=== PATIENT | female | born 1985 | race Caucasian/White ===

== ENCOUNTER → 2019-10-12 17:40 | Outpatient (BNVA) | payer BC, SELFPAY | PROVIDERS: Family Provider Family Medicine; PCP Family Medicine; Visit Provider Nurse Practitioner | DX: R09.89 Other specified symptoms and signs involving the circulatory and respiratory systems (principal); R52 Pain, unspecified | CPT/HCPCS: 87804 ==

== ENCOUNTER 2020-05-31 10:44 | Outpatient (CLI) | payer BC, SELFPAY ==
--- NOTE | 2020-05-31 11:00 | US_ITS ---
WS: [id number] LEFT DIGITAL MAMMOGRAPHY WITH CAD CLINICAL INFORMATION: BREAST LUMP COMPARISON: None. TECHNIQUE: 5 views of the left breast were obtained. FINDINGS: The left breast is composed of extremely dense tissue, which can limit the detection of small underly ing mass lesions. Palpable marker 6 clock position left breast. Underlying dense breast tissue. No de finite underlying mammographic nodules. Ultrasound is pending. No other abnormalities. ULTRASOUND BREAST LEFT TECHNIQUE: Ultrasound left breast focused area of concern. CLINICAL INFORMATION: BREAST LUMP COMPARISON: None. FINDINGS: Ultrasound left breast at the 6 clock position 2 cm from the nipple. There is a well-circumscribed ho mogeneous nodule measuring 1.1 x 0.4 x 1.0 cm this is nonspecific but most likely represents fibroade noma in a patient this age. This can be further evaluated ultrasound guided biopsy versus 6 month fol low-up. US/US breast LT limited* [id number] IMPRESSION: BI-RADS: 3-Probably Benign FOLLOW UP: 6 Month Follow-up Recommend 6 month follow-up left diagnostic mammography with ultrasound. Altern atively, ultrasound-guided biopsy could be obtained for definitive diagnosis
--- NOTE | 2020-05-31 11:41 | MM_ITS ---
WS: [id number] LEFT DIGITAL MAMMOGRAPHY WITH CAD CLINICAL INFORMATION: BREAST LUMP COMPARISON: None. TECHNIQUE: 5 views of the left breast were obtained. FINDINGS: The left breast is composed of extremely dense tissue, which can limit the detection of small underly ing mass lesions. Palpable marker 6 clock position left breast. Underlying dense breast tissue. No de finite underlying mammographic nodules. Ultrasound is pending. No other abnormalities. ULTRASOUND BREAST LEFT TECHNIQUE: Ultrasound left breast focused area of concern. CLINICAL INFORMATION: BREAST LUMP COMPARISON: None. FINDINGS: Ultrasound left breast at the 6 clock position 2 cm from the nipple. There is a well-circumscribed ho mogeneous nodule measuring 1.1 x 0.4 x 1.0 cm this is nonspecific but most likely represents fibroade noma in a patient this age. This can be further evaluated ultrasound guided biopsy versus 6 month fol low-up. MM/[place] [id number] IMPRESSION: BI-RADS: 3-Probably Benign FOLLOW UP: 6 Month Follow-up Recommend 6 month follow-up left diagnostic mammography with ultrasound. Altern atively, ultrasound-guided biopsy could be obtained for definitive diagnosis
== END 2020-05-31 10:45 | disposition home or self-care (01) ==
PROVIDERS: Family Provider Family Medicine; PCP Family Medicine; Visit Provider Obstetrics & Gynecology
DX: N63.25 Unspecified lump in the left breast, overlapping quadrants (principal)
CPT/HCPCS: 76642; 77065

== ENCOUNTER → 2020-06-29 13:04 | Outpatient (BNVA) | payer BC, SELFPAY | PROVIDERS: Family Provider Family Medicine; PCP Family Medicine; Visit Provider Obstetrics & Gynecology | DX: Z12.4 Encounter for screening for malignant neoplasm of cervix (principal) | CPT/HCPCS: 88175 ==

== ENCOUNTER → 2020-09-30 09:41 | Outpatient (BNVA) | payer BC, SELFPAY | PROVIDERS: Family Provider Family Medicine; PCP Nurse Practitioner Family; Visit Provider Obstetrics & Gynecology | DX: Z32.01 Encounter for pregnancy test, result positive (principal) | CPT/HCPCS: 81025 ==

== ENCOUNTER → 2020-11-09 11:50 | Outpatient (BNVA) | payer BC, SELFPAY | PROVIDERS: Family Provider Family Medicine; PCP Nurse Practitioner Family; Visit Provider Obstetrics & Gynecology | DX: O21.9 Vomiting of pregnancy, unspecified (principal); N60.12 Diffuse cystic mastopathy of left breast | CPT/HCPCS: 80307; 84315; 85027; 86592; 86762; 86803; 86850; 86900; 87086; 87340 ==

== ENCOUNTER → 2020-11-22 14:33 | Outpatient (BNVA) | payer BC, SELFPAY | PROVIDERS: Family Provider Family Medicine; PCP Nurse Practitioner Family; Visit Provider Obstetrics & Gynecology | DX: Z12.4 Encounter for screening for malignant neoplasm of cervix (principal); O21.9 Vomiting of pregnancy, unspecified; O99.891 Other specified diseases and conditions complicating pregnancy; Z28.3 Underimmunization status; B02.9 Zoster without complications; N60.12 Diffuse cystic mastopathy of left breast; F41.9 Anxiety disorder, unspecified; O99.340 Other mental disorders complicating pregnancy, unspecified trimester | CPT/HCPCS: 84315; 87491; 87591; 88175 ==

== ENCOUNTER 2020-12-20 07:39 | Outpatient (CLI) | payer BC, SELFPAY ==
--- NOTE | 2020-12-20 08:00 | US_ITS ---
WS: [id number] ULTRASOUND LEFT BREAST HISTORY: N60.12 - Diffuse cystic mastopathy of left breast COMPARISON: 05/31/2020 TECHNIQUE: 2-D and Doppler. The hypoechoic area in the LEFT breast at 6:00, 2 cm from nipple is again identified measuring 1.5 x 0.6 x 1.1 cm. This is probably focal fibroglandular breast tissue. There are no suspicious findings o r shadowing. US/US breast LT limited* [id number] IMPRESSION: BI-RADS: 2-Benign FOLLOW-UP: See Report No additional imaging is necessary of the LEFT breast abnormality seen by ultra sound unless there is a clinical change.
== END 2020-12-20 07:40 | disposition home or self-care (01) ==
PROVIDERS: PCP Nurse Practitioner Family; Visit Provider Obstetrics & Gynecology
DX: N60.12 Diffuse cystic mastopathy of left breast (principal)
CPT/HCPCS: 76642

== ENCOUNTER → 2020-12-21 15:49 | Outpatient (BNVA) | payer BC, SELFPAY | PROVIDERS: PCP Nurse Practitioner Family; Visit Provider Nurse Practitioner Women's Health | DX: O99.340 Other mental disorders complicating pregnancy, unspecified trimester (principal); O21.9 Vomiting of pregnancy, unspecified; N89.8 Other specified noninflammatory disorders of vagina; F41.9 Anxiety disorder, unspecified; N60.12 Diffuse cystic mastopathy of left breast; O99.891 Other specified diseases and conditions complicating pregnancy; Z28.3 Underimmunization status; B02.9 Zoster without complications; O23.599 Infection of other part of genital tract in pregnancy, unspecified trimester; B96.89 Other specified bacterial agents as the cause of diseases classified elsewhere | CPT/HCPCS: 82105; 84315 ==

== ENCOUNTER → 2021-02-22 15:10 | Outpatient (BNVA) | payer BC, SELFPAY | PROVIDERS: PCP Nurse Practitioner Family; Visit Provider Nurse Practitioner Women's Health | DX: Z34.90 Encounter for supervision of normal pregnancy, unspecified, unspecified trimester (principal); F41.9 Anxiety disorder, unspecified; R00.2 Palpitations; Z28.3 Underimmunization status | CPT/HCPCS: 84315; 84443; 85025 ==

== ENCOUNTER 2021-03-02 14:49 | Emergency (ER) | payer BC, SELFPAY ==
[2021-03-02 15:38] VITALS: BP 118/80; PULSE 97; RESP 18; TEMP 36.8; O2SAT 98; BMI 29.5
--- NOTE | 2021-03-02 16:54 | ECG_ITS ---
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 Measurements Intervals [place] Rate: 91 P: 60 [place]: 138 QRS: 46 QRSD: 74 T: 35 QT: 342 QTc: 422 Interpretive Statements SINUS RHYTHM WITH SINUS ARRHYTHMIA No previous ECG available for comparison Electronically Signed On 03-02-2021 22:54:51 CDT by Jacinta Hamlin M.D. [id number]
--- NOTE | 2021-03-02 17:14 | W.ED.CHESTPA ---
HPI - Chest Pain General: Chief Complaint: Chest Pain Stated Complaint: Chest pain Time Seen by Provider: 03/02/21 17:02 Source: patient Mode of arrival: ambulatory Limitations: no limitations History of Present Illness: HPI narrative: Patient is a 35-year-old female 27 weeks here for an episode of chest pain and palpitations that occurred approximately 3 hours ago. She states she was headed home from grocery shopping. She reports pain in the left side of her chest with radiation down her left arm and into her left neck. She felt like her heart was racing. She states she felt short of breath and had tingling to her bilateral hands and also felt like she was getting tunnel vision . Patient tells me she has had previous episodes like this during her but never had the numbness/tingling to her hands or radiation to the pain. She has spoken to her OB team Marjorie Judd/Dr. Coleman about the previous episodes and they have performed thyroid labs and CBC. Was told she was slightly anemic but that thyroid labs were normal. She states she was told they may order EKG and echo to evaluate further. She states in between episodes she feels completely normal. She does have a history of anxiety in but states this doesn't feel similar. MD complaint: chest pain Onset (ago): hour(s) Timing of current episode: episodic Prior episodes: Yes Pain location: left chest Pain radiation: left arm Quality: tightness and heaviness Relieving factors: nothing Exacerbating factors: nothing Associated symptoms: Reports dyspnea (during episode only) and palpitations; Deny abdominal pain, fever(s), nausea, syncope or vomiting Risk Factors: Coronary artery disease risk factors: none Thoracic aortic dissection risk factors: Pulmonary embolism risk factors: Related Data: On Oral Contraceptives: No Review of Systems Const: Denies: fever(s), chills, body aches, change in appetite, change in weight, fatigue or malaise Eyes: Reports: other (during episode she reports tunnel vision ); Denies: blurry vision, photophobia, floaters or seeing flashes ENMT: Denies: throat pain, odynophagia, nasal discharge or nasal congestion Card: Reports: chest pain, palpitations and pre-syncope; Denies: irregular heart rhythm, edema, swelling of feet/ankles, syncope, dyspnea on exertion, orthopnea, leg pain with exertion or acrocyanosis Resp: Reports: dyspnea (during episode only); Denies: productive cough, non-productive cough, wheezing, change in phlegm color, hemoptysis or chest congestion GI: Denies: abdominal pain, nausea, vomiting or diarrhea : Denies: flank pain, dysuria, hematuria or pelvic pain Musc: Denies: neck pain, back pain, extremity pain or joint pain Skin/Breast: Denies: rash Neuro: Denies: headache(s), numbness in extremities, weakness in extremities, sensory changes, lack of coordination, difficulty walking, frequent falls or dizziness PFSH ED PFSH: Medical History No pertinent past medical history Denies diabetes, asthma, hypertension, seizures, DVT/PE PCP: CULLEN Moreno Surgical History History of surgery on arm (~1996) reset R arm S/P cholecystectomy laparoscopic cholecystectomy on 06/08/[address] Choudhary at [facility] [place]. S/P tonsillectomy 2000 S/P wisdom tooth extraction Family History Sister Heart disease Father Heart disease Hyperlipidemia Grandmother Heart disease paternal--she reports they all have tachycardia-AV maurice re-entrant tachycardia Family/Other Thyroid condition maternal aunt Denies family history of Colon cancer Ovarian cancer Diabetes Breast cancer Hypertension Uterine cancer Stroke Physical Exam Const: COMMON NORMALS: no acute distress, average body habitus, patient oriented x3, no limitations, healthy appearing, alert and well nourished HENMT: COMMON NORMALS: normocephalic and atraumatic HEAD & SCALP: normocephalic and atraumatic Chest: COMMONS NORMALS: normal inspection of the chest and normal palpation of entire chest wall Resp: COMMON NORMALS: normal respiratory effort and clear to auscultation bilaterally AUSCULTATION: clear to auscultation bilaterally Cardio: COMMON NORMALS: regular rate and regular rhythm RATE: regular rate RHYTHM: regular rhythm GI: INSPECTION: Yes gravid abdomen Extremity: COMMON NORMALS: no calf tenderness and no pedal edema Neuro: COMMON NORMALS: patient oriented x3 SENSORIUM/ORIENTATION: Yes alert Skin: COMMON NORMALS: no rashes or lesions noted GENERAL SKIN EXAM: no rashes or lesions noted Course Vital Signs: Vital signs: Vital Signs Temperature 98.2 F 03/02/21 15:38 Pulse Rate 79 03/02/21 18:52 Respiratory Rate 18 03/02/21 18:52 Blood Pressure 97/69 03/02/21 18:52 Pulse Oximetry 98 03/02/21 18:52 MDM - Chest Pain MDM Narrative: Medical decision making narrative: Patient clinically appears well. Her vital signs are stable. Lab work showing mild anemia with a hemoglobin of 10.4. Remainder of labs including a troponin and BNP are unremarkable. Patient declined CXR secondary to status. EKG showing sinus rhythm with sinus arrhythmia. Patient requesting follow-up with cardiology for further evaluation. Information placed with case management. Return to ED precautions given. Lab Data: Labs: Lab Results 03/02/21 03/02/21 03/02/21 Range/Units 17:30 17:30 17:30 WBC 11.7 H (4.0-10.0) 10^3/ uL RBC 3.56 L (4.1-5.3) 10^6/u L Hgb 10.4 L (11.5-15.3) g/dL Hct 31.9 L (37.0-47.0) % MCV 89.6 (81-99) fL MCH 29.2 (28.0-34.0) pg MCHC 32.6 (30.0-36.0) g/dL RDW 12.8 (12.1-15.1) % Plt Count 291 (130-400) 10^3/c mm MPV 10.3 (7.4-10.4) fL Neut % (Auto) 77.5 % Lymph % (Auto) 15.3 % Mcdonough % (Auto) 5.7 % Eos % (Auto) 0.7 % Baso % (Auto) 0.2 % Neut # (Auto) 9.08 H (1.8-7.7) 10^3/u L Lymph # (Auto) 1.8 (0.8-4.8) 10^3/u L Mcdonough # (Auto) 0.7 (0.2-0.9) 10^3/u L Eos # (Auto) 0.1 (0.0-0.8) 10^3/u L Baso # (Auto) 0.0 (0.0-0.1) 10^3/u L Nucleated RBC % (a uto) 0 % Nucleated RBCs # 0.0 /100WBC Sodium 138 (136-145) mmol/L Potassium 3.8 (3.5-5.1) mmol/L Chloride 103 (98-107) mmol/L Carbon Dioxide 24 (22-29) mmol/L Anion Gap 14.8 (5-19) BUN 6 (6-20) mg/dL Creatinine 0.4 L (0.5-0.9) mg/dL GFR Calculation 182.7 H (90-130) mL/min Glucose 74 (65-115) mg/dL Calculated Osmolal ity 282 L (285-295) mOsm/k g Calcium 8.5 (8.5-10.5) mg/dL Total Bilirubin 0.3 (0.15-1.2) mg/dL AST 17 (0-32) U/L ALT 13 (0-33) U/L Alkaline Phosphata se 82 (35-105) IU/L Troponin T Baselin e 6 (0-10) ng/L NT-Pro-B Natriuret Pep 70 (0-125) pg/mL Total Protein 5.9 L (6.6-8.7) g/dL Albumin 3.5 (3.5-5.2) g/dL Globulin 2.4 (1.3-4.6) g/dL EKG Data^: EKG 1: EKG interpretation date: 03/02/21 EKG interpretation time: 17:40 Interpretation: Sinus rhythm with sinus arrhythmia Rate [address] elevation or depression changes noted Discharge Plan Discharge Patient Disposition: Home Clinical Impression: Chest pain during Condition: Stable Prescriptions: No Action Probiotic 5 billion cell capsule, sprinkle 1 cap PO BEDTIME RF: 0 Gummies 400 mcg-35 mg- 25 mg-5 mg tablet,chewable 1 tab PO BEDTIME RF: 0 buspirone 7.5 mg tablet 7.5 mg PO BID Qty: 60 RF: 2 ferrous sulfate [Cecily-Time] 325 mg (65 mg iron) tablet 325 mg PO BEDTIME RF: 0 Discharge Orders: Discharge ED (Routine); Ordered 03/02/21 Ordered By: Lorenza Cervantes Referrals: Brittany Beckett, JOSE LUIS [Primary Care Provider] - Coding Level of Care Code ED Athletic Agent for Chg Fwd Exam Comprehensive
[2021-03-02 17:16] VITALS: BP 118/72; PULSE 82; RESP 18; O2SAT 98
[2021-03-02 17:47] LABS: Basophils % 0.2 %; Eosinophils # 0.1 10^3/uL (0.0-0.8); Eosinophils % 0.7 %; Hematocrit 31.9 % (37.0-47.0); Hemoglobin 10.4 g/dL (11.5-15.3); Lymphocytes # 1.8 10^3/uL (0.8-4.8); Lymphocytes % 15.3 %; Mean Corpuscular HGB Conc 32.6 g/dL (30.0-36.0); Mean Corpuscular Hemoglobin 29.2 pg (28.0-34.0); Mean Corpuscular Volume 89.6 fL (81-99); Mean Platelet Volume 10.3 fL (7.4-10.4); Monocytes # 0.7 10^3/uL (0.2-0.9); Monocytes % 5.7 %; Neutrophils # 9.08 10^3/uL (1.8-7.7); Neutrophils % 77.5 %; Nucleated Red Blood Cells % 0 %; Platelet Count 291 10^3/cmm (130-400); Red Blood Count 3.56 10^6/uL (4.1-5.3); Red Cell Distribution Width 12.8 % (12.1-15.1); White Blood Count 11.7 10^3/uL (4.0-10.0)
[2021-03-02 18:29] LABS: Troponin(5th) Baseline 6 ng/L (0-10)
[2021-03-02 18:38] LABS: Alanine Aminotransferase 13 U/L (0-33); Albumin Level 3.5 g/dL (3.5-5.2); Alkaline Phosphatase 82 IU/L (35-105); Anion Gap 14.8 (5-19); Aspartate Amino Transferase 17 U/L (0-32); Blood Urea Nitrogen 6 mg/dL (6-20); Calcium 8.5 mg/dL (8.5-10.5); Carbon Dioxide 24 mmol/L (22-29); Chloride 103 mmol/L (98-107); Globulin 2.4 g/dL (1.3-4.6); Glomerular Filtration Rate 182.7 mL/min (90-130); Glucose 74 mg/dL (65-115); NT Pro B Type Natriuretic Pept 70 pg/mL (0-125); Osmolality Calculated 282 mOsm/kg (285-295); Potassium 3.8 mmol/L (3.5-5.1); Sodium 138 mmol/L (136-145); Total Bilirubin 0.3 mg/dL (0.15-1.2); Total Protein 5.9 g/dL (6.6-8.7)
[2021-03-02 18:52] VITALS: BP 97/69; PULSE 79; RESP 18; O2SAT 98
--- NOTE | 2021-03-02 18:54 | ECG_ITS ---
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 Measurements Intervals [place] Rate: 80 P: 66 VA: 137 QRS: 90 QRSD: 86 T: 50 QT: 359 QTc: 415 Interpretive Statements SINUS RHYTHM Compared to ECG 03/02/2021 17:40:33 Sinus arrhythmia no longer present Electronically Signed On 03-02-2021 23:04:38 CDT by Jacinta Hamlin M.D. [email or web address] beachwood medical centerSunnyloft/store/[id number]
[2021-03-02 19:07] LABS: Add Urine Microscopic? NO; Charge for UA Resulting for Rev
[2021-03-02 19:09] LABS: Bilirubin Urine Neg (Negative); Blood Urine Neg (Negative); Glucose Urine UA Norm (Normal); Ketones Urine 1+ (Negative); Leukocyte Esterase Urine Negative (Negative); Nitrate Urine Negative (Negative); Protein Urine Neg (Negative); Specific Gravity, Urine 1.005 (1.005-1.030); Urine Appearance Clear (CLEAR); Urine Color Yellow (Yellow); Urobilinogen Urine Norm (Negative); pH Urine 7 (5-7)
[2021-03-02 19:12] VITALS: BP 101/71; PULSE 80; RESP 18; O2SAT 98
--- NOTE | 2021-03-03 13:51 | DCPLANNER ---
consulting solution manager had message to schedule a follow up appointment for patient with [facility] for chest pain. consulting solution manager called [facility], spoke with Delaney, gave clinic patients information. A follow up appointment was scheduled for Monday, March 15, 2021 at 9:[address] Lea. consulting solution manager called patient and gave patient the appointment information, she stated that she would attend appointment.
--- NOTE | 2021-03-24 08:49 | DCPLANNER ---
Patient did attend follow up appointment with [facility].
== END 2021-03-02 19:10 | disposition home or self-care (01) ==
PROVIDERS: Family Medicine; Emergency Provider Physician Assistant; PCP Nurse Practitioner Family
DX: O26.892 Other specified pregnancy related conditions, second trimester (principal); Z3A.27 27 weeks gestation of pregnancy
CPT/HCPCS: 80053; 81003; 83880; 84484; 85025; 93005; 99284

== ENCOUNTER → 2021-03-14 13:35 | Outpatient (BNVA) | payer BC, SELFPAY | PROVIDERS: PCP Nurse Practitioner Family; Visit Provider Obstetrics & Gynecology | DX: O99.891 Other specified diseases and conditions complicating pregnancy (principal); R00.2 Palpitations; Z28.3 Underimmunization status; O99.340 Other mental disorders complicating pregnancy, unspecified trimester; F41.9 Anxiety disorder, unspecified; O99.013 Anemia complicating pregnancy, third trimester; Z3A.00 Weeks of gestation of pregnancy not specified | CPT/HCPCS: 82950; 84315; 85025 ==

== ENCOUNTER → 2021-05-13 14:31 | Outpatient (BNVA) | payer BC, SELFPAY | PROVIDERS: PCP Nurse Practitioner Family; Visit Provider Nurse Practitioner Women's Health | DX: Z30.2 Encounter for sterilization; O99.013 Anemia complicating pregnancy, third trimester; R00.2 Palpitations; O99.891 Other specified diseases and conditions complicating pregnancy; Z28.3 Underimmunization status; O99.340 Other mental disorders complicating pregnancy, unspecified trimester; F41.9 Anxiety disorder, unspecified | CPT/HCPCS: 84315; 85025; 87081 ==

== ENCOUNTER → 2021-05-26 10:13 | Outpatient (BNVA) | payer BC, SELFPAY | PROVIDERS: PCP Nurse Practitioner Family; Visit Provider Obstetrics & Gynecology | DX: Z34.80 Encounter for supervision of other normal pregnancy, unspecified trimester (principal); Z20.822 Contact with and (suspected) exposure to COVID-19 | CPT/HCPCS: 87635 ==

== ENCOUNTER 2021-05-30 16:05 | Inpatient (IN) | payer BC, SELFPAY ==
[2021-05-30] VITALS (9 sets, daily range): BP systolic 117–150; BP diastolic 74–89; PULSE 77–90; BMI 32.9
[2021-05-30 17:44] LABS: Basophils % 0.2 %; Eosinophils # 0.1 10^3/uL (0.0-0.8); Eosinophils % 0.4 %; Hematocrit 32.2 % (37.0-47.0); Hemoglobin 10.4 g/dL (11.5-15.3); Lymphocytes # 2.3 10^3/uL (0.8-4.8); Mean Corpuscular HGB Conc 32.3 g/dL (30.0-36.0); Mean Corpuscular Volume 86.6 fl (81-99); Mean Platelet Volume 11.1 fL (7.4-10.4); Monocytes # 0.8 10^3/uL (0.2-0.9); Monocytes % 7.5 %; Neutrophils # 8.03 10^3/uL (1.8-7.7); Neutrophils % 71.2 %; Nucleated Red Blood Cells % 0 %; Platelet Count 330 10^3/cmm (130-400); Red Blood Count 3.72 10^6/uL (4.1-5.3); Red Cell Distribution Width 15.6 % (12.1-15.1); White Blood Count 11.3 10^3/uL (4.0-10.0)
[2021-05-30] MEDS: miSOPROStol 100 mcg tablet 25 MCG VAGINAL (19:13)
[2021-05-30] MEDS: dextrose 5%-lactated ringers 1,000 ML 125 ML IV (19:31)
[2021-05-31] VITALS (30 sets, daily range): BP systolic 111–148; BP diastolic 61–97; PULSE 74–102; RESP 17–19; TEMP 36.2–37.2; O2SAT 98
--- NOTE | 2021-05-31 00:19 | PC.NURSE ---
Patient requesting fentanyl for pain once she goes back to her room after she is done ambulating. Back on monitor at 0011. Educated patient that she would have to be on monitor for 20 minutes for an NST and then RN would call Dr. Coleman for 25 mcg dose of fentanyl to ensure FHT's appropriate before administration.
[2021-05-31] MEDS: fentaNYL 50 mcg/mL INJ 2mL IVP ×3 (00:50→04:06)
--- NOTE | 2021-05-31 04:45 | PM.OPHPUD ---
Labor & Delivery H&P Update Date of Procedure: May 31, 2021 Date H&P Performed: 05/25/21 H&P update information: I have reviewed H&P completed within last 30 days, I have examined patient prior to procedure, Changes to prior documentation as noted here and H&P is in [facility] EMR on date indicated Changes to previous documentation: Patient is an active labor and is 5 cm, 70% and -2 station Admission Diagnosis:
[2021-05-31] MEDS: ondansetron 2 mg/ML SDV 2 mL 4 MG IVP ×2 (05:56→08:55)
[2021-05-31] MEDS: oxytocin 30 UNIT/500 ML BAG IV (08:20)
[2021-05-31] MEDS: dextrose 5%-lactated ringers 1,000 ML 125 ML IV (08:41)
[2021-05-31] MEDS: lidocaine 2% INJ 20 mL INJECTION (09:13)
[2021-05-31] MEDS: acetaminophen 325 mg Tablet 650 MG PO (10:19)
[2021-05-31] MEDS: benzocaine-menthol 78 gm Canister 1 SPRAY TOPICAL (10:20)
[2021-05-31] MEDS: lanolin oint 7 gm 1 APPLIC TOPICAL (10:20)
--- NOTE | 2021-05-31 10:29 | P.PCNOB_ITS ---
Delivery Note: Date of delivery: May 31, 2021 - PRE-DELIVERY DIAGNOSIS: 35-year-old 5 para 3-0-1-3 at 39 weeks and 1 day gestation GBS negative Anemia on iron Rubella nonimmune Anxiety controlled with BuSpar POST-DELIVERY DIAGNOSIS: Vaginal delivery on 05/31/2021 PROCEDURE: Vaginal delivery on 05/31/2021 ANESTHESIA: Local anesthesia DELIVERING PHYSICIAN: Giovany Coleman FACOG PRE-DELIVERY COURSE: Ms. Swanson is 35-year-old 5 para 3-0-1-3 at 39 weeks and 0 days who presented to labor and delivery at 4:30 PM on 05/30/2021 with reports of contractions. She had been having contractions every 5 to 7 minutes consistently since about 5 AM that morning. She was scheduled for an induction at 7 PM however given the contractions came in for evaluation.Her cervix was 1 cm, 70% and -2 station and she was observed for 2 hours and she madeNo cervical change although she did have contractions every 10 minutes. tracing was category 1 and vital signs were stable. Since she made no cervical change and contractions spaced out decision was made to proceed with the scheduled induction and Cytotec was placed vaginally at 7 PM. She did well with this and 4 hours after placement of Cytotec her cervix was 2 cm 80% and -2 station. She was nhan pretty regularly every 2 to 5 minutes and decision was made to just observe her to see if she was making cervical change. 2 hours later she was 3 cm and at 4 AM she was 4 cm, 80% and -2 station. Artificial rupture of membranes was performed at 4:39 AM with clear fluid at which point she was 5 cm 70% and -1 station with the head well applied. Clear fluid was noted. After this she made steady cervical change and was 9 cm at 6 AM however made no further cervical change and contractions spaced out to every 4 to 5 minutes. Pitocin was started at 8:15 AM titrated to a maximum of 2 mIU and with this she started a regular contractions and was fully dilated at 8:47 AM and +2 station ready to push. DELIVERY NOTE: She was set up in lithotomy position and was pushing effectively. She was noted to be +3 station and continued pushing well. The head delivered in TYLER position, tight nuchal cord x1 was present. And it was unable to be reduced. The posterior hand and shoulder delivered first through the cord after which the cord was reduced and then the shoulders and rest of the body followed with her next push. The baby's mouth and nose were suctioned and the baby was placed on the mother's belly. Once cord pulsations stopped the cord was clamped and cut. The placenta delivered spontaneously intact with membranes and was discarded. The fundus was noted to be firm and well contracted. The vagina and cervix were inspected and no cervical or sulcal lacerations were noted. A first-degree perineal laceration was noted which was numbed up with 2% lidocaine and repaired with 3-0 Vicryl on an SH in a continuous interlocking fashion. Good hemostasis and reapproximation was obtained. Baby boyRio born at 8:57 AM on 05/31/2021 with 8/9, weighing 6 pounds 12 ounces, 3017 g, 20-1/2 inches long. Placenta was delivered spontaneously intact with membranes at 9:03 AM. Cotyledons were intact , centrally inserted umbilical cord with 3 vessels noted. Estimated blood loss 250 mL. Complications-none, both baby and mother were left to recover in a stable condition. This documentation was created by [employer] pinsetter mechanic automatic software (known for inherent pinsetter mechanic automatic error). Every effort was made to assure accuracy of marley scription. Any obvious errors or omissions should be clarified with the author of the document. Coding Level of Care Code Acute Debarker Operator for g Fwd History History History 5 Term 4 Miscarriages/Ectopic 1 0 Living Children 4 Other History: G5, P4-0-1-4 X 4 SAB X 1 1--->2009, baby boy Lizandro) weighing 7 pounds, full term vaginal delivery, and course were uncomplicated, Delivered by Dr. Watkins at [facility] in [place], [place]. 2--->10/19/14, baby girl (Luci) 6lb 11 oz, full [place] [facility] [place] Immediate course was complicated by hemorrhage requiring uterotonic agents-hemoglobin was 9 on discharge. She also had an epidural headache which required 2 blood patches. 3--> 10/2017, SAB at 4 wks gestation, no d&c needed. 4--> 09/11/18, baby girl (Maki) 6lb 9 oz, full term vaginal delivery [place] Dud[place] [facility] [place] No complications. 5--> 05/31/2021, baby boy(Rio) weighing 6 pounds 12 ounces, full- term vaginal delivery [place] Dr. Coleman [place] [facility] [place] 12 are induction, first-degree perineal tear. No complications.
--- NOTE | 2021-05-31 12:23 | PC.NURSE ---
PT RESTING WITH EYES CLOSED, DID NOT WAKE HER.
[2021-05-31] MEDS: ibuprofen 800 mg tablet PO ×2 (14:24→21:35)
[2021-05-31] MEDS: HYDROcodone-acetaminophen 5-325 mg Tablet PO (18:19)
[2021-05-31] MEDS: docusate sodium 100 mg Capsule PO (18:19)
[2021-05-31 21:55] LABS: Hematocrit 30.4 % (37.0-47.0); Hemoglobin 9.7 g/dL (11.5-15.3); Mean Corpuscular HGB Conc 31.9 g/dL (30.0-36.0); Mean Corpuscular Hemoglobin 28.1 pg (28.0-34.0); Mean Corpuscular Volume 88.1 fl (81-99); Mean Platelet Volume 10.7 fL (7.4-10.4); Platelet Count 304 10^3/cmm (130-400); Red Blood Count 3.45 10^6/uL (4.1-5.3); Red Cell Distribution Width 15.6 % (12.1-15.1); White Blood Count 17.6 10^3/uL (4.0-10.0)
[2021-06-01] MEDS: HYDROcodone-acetaminophen 5-325 mg Tablet PO ×2 (01:21→07:00)
[2021-06-01 03:15] VITALS: BP 131/74; PULSE 71; RESP 14; TEMP 36.7; O2SAT 98
--- NOTE | 2021-06-01 05:57 | PM.OBGYDC ---
Discharge Providers WHITE LEAD GRINDER Date of Admission: 05/30/21 16:05 Date of Discharge: 06/01/21 Attending Provider at Admission: Giovany Donaldson MD Attending Provider at Discharge: Giovany Donaldson MD Primary Care Provider: Brittany Beckett NP PRE-DELIVERY DIAGNOSIS: 35-year-old 5 para 3-0-1-3 at 39 weeks and 1 day gestation GBS negative Anemia on iron Rubella nonimmune Anxiety controlled with BuSpar POST-DELIVERY DIAGNOSIS: Vaginal delivery on 05/31/2021 PROCEDURE: Vaginal delivery on 05/31/2021 ANESTHESIA: Local anesthesia DELIVERING PHYSICIAN: Giovany Coleman FACOG PRE-DELIVERY COURSE: Ms. Swanson is 35-year-old 5 para 3-0-1-3 at 39 weeks and 0 days who presented to labor and delivery at 4:30 PM on 05/30/2021 with reports of contractions. She had been having contractions every 5 to 7 minutes consistently since about 5 AM that morning. She was scheduled for an induction at 7 PM however given the contractions came in for evaluation.Her cervix was 1 cm, 70% and -2 station and she was observed for 2 hours and she madeNo cervical change although she did have contractions every 10 minutes. tracing was category 1 and vital signs were stable. Since she made no cervical change and contractions spaced out decision was made to proceed with the scheduled induction and Cytotec was placed vaginally at 7 PM. She did well with this and 4 hours after placement of Cytotec her cervix was 2 cm 80% and -2 station. She was nhan pretty regularly every 2 to 5 minutes and decision was made to just observe her to see if she was making cervical change. 2 hours later she was 3 cm and at 4 AM she was 4 cm, 80% and -2 station. Artificial rupture of membranes was performed at 4:39 AM with clear fluid at which point she was 5 cm 70% and -1 station with the head well applied. Clear fluid was noted. After this she made steady cervical change and was 9 cm at 6 AM however made no further cervical change and contractions spaced out to every 4 to 5 minutes. Pitocin was started at 8:15 AM titrated to a maximum of 2 mIU and with this she started a regular contractions and was fully dilated at 8:47 AM and +2 station ready to push. DELIVERY NOTE: She was set up in lithotomy position and was pushing effectively. She was noted to be +3 station and continued pushing well. The head delivered in TYLER position, tight nuchal cord x1 was present. And it was unable to be reduced. The posterior hand and shoulder delivered first through the cord after which the cord was reduced and then the shoulders and rest of the body followed with her next push. The baby's mouth and nose were suctioned and the baby was placed on the mother's belly. Once cord pulsations stopped the cord was clamped and cut. The placenta delivered spontaneously intact with membranes and was discarded. The fundus was noted to be firm and well contracted. The vagina and cervix were inspected and no cervical or sulcal lacerations were noted. A first-degree perineal laceration was noted which was numbed up with 2% lidocaine and repaired with 3-0 Vicryl on an SH in a continuous interlocking fashion. Good hemostasis and reapproximation was obtained. Baby boy, Rio born at 8:57 AM on 05/31/2021 with 8/9, weighing 6 pounds 12 ounces, 3017 g, 20-1/2 inches long. Placenta was delivered spontaneously intact with membranes at 9:03 AM. Cotyledons were intact , centrally inserted umbilical cord with 3 vessels noted. Estimated blood loss 250 mL. Complications-none, both baby and mother were left to recover in a stable condition. HOSPITAL COURSE: She underwent an uncomplicated vaginal delivery on 05/31/2021. She did well on day 0 and was ambulating well, tolerating regular diet, voiding freely, passing flatus. She was breast-feeding without difficulty and bonding well with her son. Circumcision was performed on him on day of life 1 per her request after counseling and informed consent was obtained. Pain was well-controlled with by mouth pain medication. She denied nausea, vomiting, fever, chills, shortness of breath, leg pain. She had moderate vaginal bleeding. On day # 1 she continued to do well with stable vital signs and stable hemoglobin at 9.7. She was discharged home on day 1 in a stable condition, as she desired early discharge. Warning signs for endometritis, mastitis, DVT/PE were reviewed with her. Post delivery activity restrictions were also reviewed with her at all her questions were answered to her satisfaction. Her has already had a vasectomy for contraception. EXAM AT DISCHARGE: Gen.: No acute distress Heart: S1-S2 heard, regular rate and rhythm Lungs: Clear to auscultation bilaterally Abdomen: Soft, fundus firm below umbilicus, Legs: No calf tenderness, +1 bilateral pitting pedal edema. CONDITION AT DISCHARGE: Stable This documentation was created by [employer] presales consultant software (known for inherent presales consultant error). Every effort was made to assure accuracy of presales consultant. Any obvious errors or omissions should be clarified with the author of the document. Reason for Visit Reason for Visit: contraction Information Peripartum Data: Infant Delivery Method: Vaginal Discharge Data Data Completed and Pending: Labs from last 24 hours 05/31/21 21:44 WBC 17.6 H RBC 3.45 L Hgb 9.7 L Hct 30.4 L MCV 88.1 MCH 28.1 MCHC 31.9 RDW 15.6 H Plt Count 304 MPV 10.7 H Vitals: Last Vital Signs Temp 98.1 F 06/01/21 03:15 Pulse 71 06/01/21 03:15 Resp 14 06/01/21 03:15 BP 131/74 06/01/21 03:15 Pulse Ox 98 06/01/21 03:15 Discharge Plan Discharge Patient Disposition: Home Condition: Stable Prescriptions: New docusate sodium 100 mg Capsule 100 mg PO BID PRN (Reason: constipation) Qty: 30 RF: 0 ibuprofen 800 mg tablet 800 mg PO Q8H Qty: 30 RF: 0 Continued Probiotic 5 billion cell capsule, sprinkle 1 cap PO BEDTIME RF: 0 loratadine [Claritin] 10 mg tablet 10 mg PO DAILY RF: 0 buspirone 15 mg tablet 15 mg PO BID Qty: 60 RF: 1 prenat.vits,guadalupe,bfo-prjp-uigbm Tablet 1 tab PO DAILY RF: 0 Discontinued ferrous sulfate [Cecily-Time] 325 mg (65 mg iron) tablet 325 mg PO BEDTIME RF: 0 Discharge Orders: Discharge Order (Routine); Ordered 06/01/21 Ordered By: Giovany Donaldson Referrals: Giovany Donaldson MD [Physician] - Discharge Diet: Usual diet Discharge Activity: Limit activity as instructed Patient Instructions: Opioid Safety Activity Restrictions/Additional Instructions: Pelvic rest for 6 weeks, no heavy lifting for 6 weeks, 6-week visit with Dr. Coleman Discharge Attestations WHITE LEAD GRINDER Time Spent in Discharge Care*: greater than 30 min Coding Level of Care Code Acute Sports Administrator for Thaddeus Sauer
[2021-06-01] MEDS: measles,mumps,rubella pf Vial (w/diluent) 0.5 ML SUBCUT (10:01)
[2021-06-01] MEDS: ibuprofen 800 mg tablet PO (10:04)
[2021-06-01] MEDS: prenatal vitamin Capsule 1 CAP PO (10:04)
[2021-06-01] MEDS: docusate sodium 100 mg Capsule PO (10:04)
[2021-06-01 10:25] VITALS: BP 119/81; PULSE 83; RESP 15; TEMP 36.4
== END 2021-06-01 10:25 | disposition home or self-care (01) | DRG 807 ==
PROVIDERS: Admitting Provider Obstetrics & Gynecology; PCP Nurse Practitioner Family; Visit Provider Obstetrics & Gynecology
DX: O99.02 Anemia complicating childbirth (principal); Z37.0 Single live birth; D64.9 Anemia, unspecified; O99.344 Other mental disorders complicating childbirth; F41.9 Anxiety disorder, unspecified; O69.2XX0 Labor and delivery complicated by other cord entanglement, with compression, not applicable or unspecified; O70.0 First degree perineal laceration during delivery; Z3A.39 39 weeks gestation of pregnancy; O75.89 Other specified complications of labor and delivery; R00.2 Palpitations; N63.20 Unspecified lump in the left breast, unspecified quadrant
CPT/HCPCS: 36415; 59025; 59409; 85025; 85027; 90707; 96372; 96374; 96376; 99211; J2405; J3010

== ENCOUNTER → 2021-06-13 16:35 | Outpatient (BNVA) | payer BC, SELFPAY | PROVIDERS: PCP Nurse Practitioner Family; Visit Provider Obstetrics & Gynecology | DX: R30.0 Dysuria (principal) | CPT/HCPCS: 87086 ==

== ENCOUNTER → 2021-06-23 12:27 | Outpatient (BNVA) | payer BC, SELFPAY | PROVIDERS: PCP Nurse Practitioner Family; Visit Provider Obstetrics & Gynecology | DX: R10.2 Pelvic and perineal pain (principal) | CPT/HCPCS: 76856 ==

== ENCOUNTER → 2022-07-12 07:51 | Outpatient (BNVA) | payer BC, SELFPAY | PROVIDERS: PCP Family Medicine; Visit Provider Family Medicine | DX: Z00.00 Encounter for general adult medical examination without abnormal findings (principal); R00.0 Tachycardia, unspecified; R00.2 Palpitations; M25.50 Pain in unspecified joint; Z51.81 Encounter for therapeutic drug level monitoring; Z13.220 Encounter for screening for lipoid disorders | CPT/HCPCS: 80053; 80061; 85025; 85651; 86431 ==

== ENCOUNTER 2023-03-29 11:21 | Day surgery (SDC) | payer BC, SELFPAY ==
[2023-03-28 08:42] VITALS: BMI 25.8
[2023-03-29] VITALS (12 sets, daily range): BP systolic 107–133; BP diastolic 64–85; PULSE 62–79; RESP 16–18; TEMP 36.1–36.6; O2SAT 94–100
--- NOTE | 2023-03-29 11:36 | ECG_ITS ---
[facility] Test Date: 2023-03-29 Pat Name: Samia Swanson Department: Room: Gender: Female Technical Implementation Lead: : 1985 Requested By: Ramon Ahumada Order Number: [id number] Pat MD: Min Evans M.D. Measurements Intervals [place] Rate: 63 P: 68 CA: 133 QRS: 56 QRSD: 86 T: 36 QT: 403 QTc: 415 Interpretive Statements SINUS RHYTHM Compared to ECG 03/02/2021 19:00:23 No significant changes Electronically Signed On 03-29-2023 16:08:09 CDT by Min Evans M.D. [email or web address] Digitalparkwood behavioral health systemRipwave Total Media Systemcleveland clinic [facility].[employer]/store/[id number]
[2023-03-29] MEDS: sodium chloride 0.9% 1,000 ML 30 ML IV (11:43)
[2023-03-29] MEDS: scopolamine 1.5 Patch 1 PATCH TRANSDERMA (11:48)
[2023-03-29] MEDS: diphenhydrAMINE 50 mg/mL SDV 1mL 12.5 MG IVP (11:48)
[2023-03-29 11:55] LABS: OR HCG Qualitative Urine Negative (Negative)
[2023-03-29 12:12] LABS: Basophils % 0.4 %; Eosinophils % 0.7 %; Hematocrit 38.4 % (37.0-47.0); Hemoglobin 12.7 g/dL (11.5-15.3); Lymphocytes # 1.6 10^3/uL (0.8-4.8); Lymphocytes % 36.6 %; Mean Corpuscular HGB Conc 33.1 g/dL (30.0-36.0); Mean Corpuscular Hemoglobin 28.5 pg (28.0-34.0); Mean Corpuscular Volume 86.3 fl (81-99); Mean Platelet Volume 10.2 fL (7.4-10.4); Monocytes # 0.3 10^3/uL (0.2-0.9); Monocytes % 6.1 %; Neutrophils % 56.2 %; Nucleated Red Blood Cells % 0 %; Platelet Count 282 10^3/cmm (130-400); Red Blood Count 4.45 10^6/uL (4.1-5.3); Red Cell Distribution Width 12.3 % (12.1-15.1); White Blood Count 4.5 10^3/uL (4.0-10.0)
--- NOTE | 2023-03-29 12:17 | W.PM.OPSUD ---
Surgery/Procedure H&P Update DATE OF PROCEDURE: March 29, 2023 DATE H&P PERFORMED: 03/29/23 H&P UPDATE INFORMATION: I have reviewed H&P completed within last 30 days, I have examined patient prior to procedure and No changes to prior documentation PREOP DIAGNOSIS: left labial lesion PLANNED PROCEDURE: Operation Date: 03/29/23 13:30 Proposed Procedures p Excision of labial cyst 24066, N90.7(Not Applicable) - Ramon Cochran MD
--- NOTE | 2023-03-29 12:50 | PC.NURSE ---
Luis Antonio SINGLETON at bedside, versed given by ASSEMBLER 1ST SHIFT. Patient placed on monitor. VSS at this time. Pt voided prior to versed.
[2023-03-29] MEDS: HYDROmorphone 1 mg/mL INJ 1 mL 0.5 MG IVP (15:06)
[2023-03-29] MEDS: oxyCODONE-APAP 5-325 mg Tablet 1 TAB PO (15:07)
--- NOTE | 2023-03-29 15:16 | ANES.PREANE2 ---
Pre-Anesthetic Assessment Height/Weight: Height 1.5 m Weight 58.06 kg Temp Pulse Resp BP Pulse Ox O2 Del Method 97 F L 62 16 119/76 99 Room Air 03/29/23 14:27 03/29/23 14:57 03/29/23 15:07 03/29/23 14:57 03/29/23 15:07 03/29/23 14:57 Preop Diagnosis: left labial lesion Operation Date: 03/29/23 13:30 Proposed Procedures p Excision of labial cyst 58602, N90.7(Not Applicable) - Ramon Cochran MD Familial anesthetic complications: none Was Beta Adonis taken within 24 hours: N/A Was Clonidine taken within 24 hours: N/A Last intake: Intake Last Liquid Date 03/29/23 Last Liquid Time 09:00 Last Solid Date 03/28/23 Last Solid Time 21:00 Social No alcohol and No tobacco Exam alert, oriented x 3, clear to auscultation bilaterally and regular rate & rhythm Airway Submandibular: within normal limits Cervical ROM: within normal limits Mallampati: Class II Dentition: full CV/HEM Arrythmia Neuropsych Anxiety Anesthetic Plan ASA status: 2 Anesthesia: General Medications/Allergies Home Medications Medication Instructions Recorded Confirmed Last Taken Type ibuprofen 200 mg capsule 200 mg PO Q8H PRN pain 01/18/22 03/28/23 03/26/23 History multivitamin 1 tab PO DAILY 01/18/22 03/28/23 03/28/23 History buspirone 7.5 mg tablet 7.5 mg PO TID PRN anxiety #90 tabs 01/08/23 03/28/23 03/29/23 Rx ivabradine 5 mg tablet (Corlanor) 5 mg PO BID 01/24/23 03/28/23 03/28/23 History triamcinolone acetonide 0.1 % 1 applic topical DAILY 01/24/23 03/28/23 03/29/23 History topical cream bacitracin zinc 500 unit-polymyxin 1 applic topical BID #28.4 grams 03/21/23 03/28/23 03/28/23 Rx B 10,000 unit/gram topical ointment (Poly Bacitracin (zinc)) fluconazole 200 mg tablet 200 mg PO .every 3 days PRN yeast 03/28/23 03/28/23 03/28/23 History oxycodone-acetaminophen 5 mg-325 1 tab PO Q8H PRN pain #20 tabs 03/29/23 Unknown Rx mg tablet (Percocet) Allergies Allergy/AdvReac Type Severity Reaction Status Date / Time erythromycin base Allergy Intermediate rash Verified 03/29/23 11:30 latex Allergy swelling/ra Verified 03/29/23 11:30 sh morphine Allergy ADR-Chest Verified 03/29/23 13:44 Pain Current Medications Generic Name Dose Route Start Last Admin Trade Name Freq PRN Reason Stop Dose Admin Diphenhydramine HCl 12.5 mg 03/29/23 11:28 03/29/23 11:48 Diphenhydramine 50 Mg/Ml Sdv 1ml IVP 12.5 mg ONCE PRN Administration PONV Hydromorphone HCl 0.5 mg 03/29/23 11:28 03/29/23 15:06 Hydromorphone 1 Mg/Ml Inj 1 Ml IVP 0.5 mg ONCE PRN Administration Phase II postop pain Sodium Chloride 1,000 mls @ 30 mls/hr 03/29/23 11:30 03/29/23 11:43 Sodium Chloride 0.9% IV 03/30/23 11:29 30 mls/hr .Q24H JAG Administration PFSH Anesthesia Medical History No pertinent past medical history Denies diabetes, asthma, hypertension, seizures, DVT/PE PCP: CULLEN Moreno Surgical History History of surgery on arm (~1996) 1996----for fracture of forearm S/P cholecystectomy laparoscopic cholecystectomy on 06/08/[address] Choudhary at [facility] [place]. 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
--- NOTE | 2023-03-29 15:17 | ANE.PACU2 ---
Inpatient post-anesthesia follow up: Airway intact: Yes Vital signs: Temperature 97 F Pulse Rate 62 Respiratory Rate 16 Blood Pressure 119/76 Pulse Oximetry 99 Oxygen Delivery Me thod Room Air Oxygen Flow Rate Fraction of Inspir ed Oxygen Hydration adequate: Yes Nausea and vomiting: No Pain level: 2 Mental status: Baseline
--- NOTE | 2023-03-29 20:31 | P.OP_ITS ---
Operative Report Date of procedure: March 29, 2023 Pre-op diagnosis: Preop Diagnosis left labial lesion Post-op diagnosis: same Post-op findings: Left labial lesion, approx. 2 cm, with red, heaped-up, condylomatous appearance Procedure done: Excision of left labial lesion Specimens removed/disposition: left labial lesion Surgeon: Ramon Cochran MD Anesthesia: General Estimated blood loss (mL): 5 Complications: none Brief History: 37 y.o. with a rapidly growing red condylomatous left labial lesion Procedure: Informed consent signed Patient was taken to the OR, placed supine on the table. General anesthesia was induced. The patient was placed in dorsolithotomy position. The perineum was prepped and draped in the usual fashion. A left labial lesion can be seen, red, elevated, with fungating features, approximately 2 cm. The base extended less than 3 mm, slightly indurated. Remainder of vulva / vagina were normal. A vertically elliptical incision was made immediately around the lesion to a depth of 2 mm. The lesion was thereby removed. The skin edges were then re- approximated with three interrupted stitches of 3-O ethilon Small amount of bleeding was well-controlled with pressure. No further bleeding was seen. The patient was then placed supine, awakened, and taken to the RR Postop condition: stable Complications: none EBL: 3 cc Needle, sponge, and instruments counts were correct x 2
== END 2023-03-29 15:00 | disposition home or self-care (01) ==
PROVIDERS: PCP Family Medicine; Visit Provider Obstetrics & Gynecology
PROC: (CPT 11422; principal; 2023-03-29 13:20)
DX: N90.7 Vulvar cyst (principal); I49.9 Cardiac arrhythmia, unspecified; Z79.891 Long term (current) use of opiate analgesic; Z79.1 Long term (current) use of non-steroidal anti-inflammatories (NSAID); F41.1 Generalized anxiety disorder
CPT/HCPCS: 11422; 84703; 85025; 88305; 93005; J1100; J1170; J1200; J1885; J2250; J2405; J2704; J3010; J7030

== ENCOUNTER 2023-10-29 11:20 | Outpatient (CLI) | payer BC, SELFPAY ==
--- NOTE | 2023-10-29 11:30 | MM_ITS ---
WS: [id number] DIAGNOSTIC BILATERAL DIGITAL BREAST TOMOSYNTHESIS MAMMOGRAPHY WITH CAD LEFT breast ultrasound, limited HISTORY: N63.20 - Unspecified lump in the left breast, unspecified... COMPARISON: 05/31/2020, ultrasound 12/20/2020 and 05/31/2020 TECHNIQUE: Bilateral craniocaudad, mediolateral oblique, and mediolateral views are submitted with to mosynthesis and SM. Spot compression LEFT CC and MLO. Computer aided detection utilized. Breast composition: The breasts are heterogeneously dense, which may obscure small masses. Triangular marker anterior LEFT breast just lateral to the nipple line indicates an area of palpable abnormalit y. There is no underlying mass identified. No soft tissue thickening or calcification. There is a squ are marker placed towards the axillary tail at the area of pain which is also normal. Normal RIGHT br east. LEFT breast ultrasound, limited. Reidentified is the hypoechoic ovoid nodule at 6:00, 2 cm from the nipple measuring 9 x 5 x 11 mm. Th is is very similar in appearance to the prior study from 05/31/2020. No increase in size. This is prob ably a small fibroadenoma or lipoma. There is no abnormality in the LEFT breast towards the axilla at the area of pain. IMPRESSION: MM/[place] [id number] BI-RADS: 2-Benign FOLLOW UP: Age 41
--- NOTE | 2023-10-29 12:00 | US_ITS ---
WS: [id number] DIAGNOSTIC BILATERAL DIGITAL BREAST TOMOSYNTHESIS MAMMOGRAPHY WITH CAD LEFT breast ultrasound, limited HISTORY: N63.20 - Unspecified lump in the left breast, unspecified... COMPARISON: 05/31/2020, ultrasound 12/20/2020 and 05/31/2020 TECHNIQUE: Bilateral craniocaudad, mediolateral oblique, and mediolateral views are submitted with to mosynthesis and SM. Spot compression LEFT CC and MLO. Computer aided detection utilized. Breast composition: The breasts are heterogeneously dense, which may obscure small masses. Triangular marker anterior LEFT breast just lateral to the nipple line indicates an area of palpable abnormalit y. There is no underlying mass identified. No soft tissue thickening or calcification. There is a squ are marker placed towards the axillary tail at the area of pain which is also normal. Normal RIGHT br east. LEFT breast ultrasound, limited. Reidentified is the hypoechoic ovoid nodule at 6:00, 2 cm from the nipple measuring 9 x 5 x 11 mm. Th is is very similar in appearance to the prior study from 05/31/2020. No increase in size. This is prob ably a small fibroadenoma or lipoma. There is no abnormality in the LEFT breast towards the axilla at the area of pain. IMPRESSION: US/US breast LT limited* [id number] BI-RADS: 2-Benign FOLLOW UP: Age 41
== END 2023-10-29 11:21 | disposition home or self-care (01) ==
LOC: RAD 11:21
PROVIDERS: PCP Family Medicine; Visit Provider Nurse Practitioner Women's Health
DX: N63.25 Unspecified lump in the left breast, overlapping quadrants (principal)
CPT/HCPCS: 76642; 77062; G0279

== ENCOUNTER → 2024-02-14 11:24 | Outpatient (BNVA) | payer BC, SELFPAY | PROVIDERS: PCP Family Medicine; Visit Provider Family Medicine | DX: Z51.81 Encounter for therapeutic drug level monitoring (principal); F41.9 Anxiety disorder, unspecified; E55.9 Vitamin D deficiency, unspecified | CPT/HCPCS: 80053; 82306; 84439; 84443; 85025 ==

== ENCOUNTER → 2024-05-16 15:51 | Outpatient (BNVA) | payer BC, SELFPAY | PROVIDERS: PCP Family Medicine; Visit Provider Nurse Practitioner Women's Health | DX: N92.0 Excessive and frequent menstruation with regular cycle (principal); Z01.419 Encounter for gynecological examination (general) (routine) without abnormal findings; Z13.1 Encounter for screening for diabetes mellitus | CPT/HCPCS: 83036; 84439; 84443; 85025; 87624 ==

== ENCOUNTER → 2024-06-04 11:09 | Outpatient (BNVA) | payer BC, SELFPAY | PROVIDERS: PCP Family Medicine; Visit Provider Nurse Practitioner Women's Health | DX: N92.0 Excessive and frequent menstruation with regular cycle (principal) | CPT/HCPCS: 76830 ==

== ENCOUNTER → 2024-07-04 11:15 | Outpatient (BNVA) | payer BC, SELFPAY | PROVIDERS: PCP Family Medicine; Visit Provider Nurse Practitioner Women's Health | DX: N92.0 Excessive and frequent menstruation with regular cycle (principal) | CPT/HCPCS: 84443 ==

== ENCOUNTER → 2024-10-22 11:22 | Outpatient (BNVA) | payer BC, SELFPAY | PROVIDERS: PCP Family Medicine; Visit Provider Family Medicine | DX: E03.9 Hypothyroidism, unspecified (principal) | CPT/HCPCS: 84439; 84443 ==

== ENCOUNTER → 2025-02-04 11:19 | Outpatient (BNVA) | payer BC, SELFPAY | PROVIDERS: PCP Family Medicine; Referring Provider Nurse Practitioner Women's Health; Visit Provider Internal Medicine | DX: E03.9 Hypothyroidism, unspecified (principal); J22 Unspecified acute lower respiratory infection | CPT/HCPCS: 36415; 82533; 84439; 84443 ==

== ENCOUNTER → 2025-04-08 11:39 | Outpatient (BNVA) | payer BC, SELFPAY | PROVIDERS: PCP Family Medicine; Referring Provider Nurse Practitioner Women's Health; Visit Provider Internal Medicine | DX: E03.9 Hypothyroidism, unspecified (principal); J22 Unspecified acute lower respiratory infection | CPT/HCPCS: 36415; 82533; 84439; 84443 ==